=== PATIENT | male | born 2005 | race Caucasian/White ===

== ENCOUNTER 2025-06-10 07:06 | Emergency (ER) | payer MEDICAID ==
[~2025-06-10] VITALS: Ht 182.9 cm; Wt 127.0 kg
[2025-06-10 07:08] VITALS: O2SAT 98
[2025-06-10 07:11] VITALS: TEMP 36.9; O2SAT 99
[2025-06-10 09:00] VITALS: BP 122/77; PULSE 71; RESP 16
[2025-06-10] MEDS: ONDANSETRON 4MG ODT PO ONE (09:00)
[2025-06-10] MEDS: MORPHINE SULFATE 4 MG/ML INJ (FOR IV/IM USE) IV ONE (09:00)
[2025-06-10] MEDS: KETOROLAC 30MG/ML VIAL IM ONE (09:00)
== END 2025-06-10 09:15 | disposition home or self-care (01) ==
LOC: ER 07:06
DX: N44.00 Torsion of testis, unspecified (principal); R10.32 Left lower quadrant pain; Z79.899 Other long term (current) drug therapy
CPT/HCPCS: 76870; 93976; 99285; J1885; J2270; Q0162